=== PATIENT | female | born 1975 | race Caucasian/White ===

== ENCOUNTER 2025-07-09 14:27 | Emergency (ER) | payer OTHER ==
[~2025-07-09] VITALS: Ht 160 cm; Wt 63.5 kg
[~2025-07-09 14:27] MED LIST: CEPH500 PO; CYCL10 PO; Cleocin HCl300 MG PO; DOXY100 PO; HYDACE5 PO; IBUP200; IBUP600 PO; METPRE4DP PO; Motrin600 MG PO; Naprosyn500 MG PO; Norco 5-325 Ta1 EACH PO; OXYACE5T PO; PROM25 PO; RXTRAM50 PO; SULTRIDS PO; TRAM50 PO
[2025-07-09 14:35] VITALS: BP 159/109
[2025-07-09] MEDS ORDERED: HYDROcodone 5-APAP 325 TAB PO ONE (14:40)
[2025-07-09] MEDS ORDERED: HYDR1TAB94 PO (16:04)
== END 2025-07-09 16:52 | disposition home or self-care (01) ==
LOC: ER 14:27
DX: S63.601A Unspecified sprain of right thumb, initial encounter (principal); F17.200 Nicotine dependence, unspecified, uncomplicated; V19.9XXA Pedal cyclist (driver) (passenger) injured in unspecified traffic accident, initial encounter; Z88.0 Allergy status to penicillin
CPT/HCPCS: 29125; 73110; 99283-25; A9270

== ENCOUNTER 2025-08-16 16:53 | Emergency (ER) | payer OTHER ==
[~2025-08-16] VITALS: Ht 152.4 cm; Wt 72.6 kg
[~2025-08-16 16:53] MED LIST changes: +HYDR1TAB94 PO
[2025-08-16 19:53] VITALS: BP 136/96
[2025-08-16] MEDS ORDERED: Ketorolac Tromethamine 15mg Vial IM ONE (19:55)
[2025-08-16] MEDS ORDERED: RX Prepack 6 Tabs Oxycodone 5mg UD ONE (19:55)
== END 2025-08-16 20:30 | disposition home or self-care (01) ==
LOC: ER 16:53
DX: M25.531 Pain in right wrist (principal); F17.200 Nicotine dependence, unspecified, uncomplicated; Z88.0 Allergy status to penicillin
CPT/HCPCS: 29125; 73110; 96372-59; 99283-25; A9270; J1885